=== PATIENT | female | born 1995 | race Caucasian/White ===

== ENCOUNTER 2021-07-20 13:42 | Outpatient (CLI) | payer MEDICAID | END 2021-07-20 23:59 | disposition home or self-care (01) | LOC: LAB 13:42 | PROVIDERS: ATTEND Physician Assistant Medical | DX: N30.00 Acute cystitis without hematuria (principal) | CPT/HCPCS: 87077; 87086; 87181 ==

== ENCOUNTER 2021-07-24 08:00 | Outpatient (CLI) | payer MEDICAID | END 2021-07-24 23:59 | disposition home or self-care (01) | LOC: LAB.N 08:00 | PROVIDERS: ATTEND Family Medicine | DX: J06.9 Acute upper respiratory infection, unspecified (principal); Z20.822 Contact with and (suspected) exposure to COVID-19 ==

== ENCOUNTER 2021-07-28 16:56 | Outpatient (CLI) | payer MEDICAID | END 2021-07-28 16:57 | disposition home or self-care (01) | LOC: COV 16:56 | PROVIDERS: ATTEND Family Medicine | DX: R05 Cough (principal); M79.10 Myalgia, unspecified site; R43.8 Other disturbances of smell and taste; Z20.822 Contact with and (suspected) exposure to COVID-19 ==

== ENCOUNTER 2021-08-22 08:00 | Outpatient (CLI) | payer MEDICAID | END 2021-08-22 23:59 | disposition home or self-care (01) | LOC: LAB.N 08:00 | PROVIDERS: ATTEND Physician Assistant Medical | DX: R30.0 Dysuria (principal) | CPT/HCPCS: 87077; 87086 ==

== ENCOUNTER 2021-11-17 08:00 | Outpatient (CLI) | payer MEDICAID ==
[2021-11-17 22:22] LABS: BACTERIAL VAGINOSIS DNA NEGATIVE (NEGATIVE); CANDIDA GLABRATA DNA NEGATIVE (NEGATIVE); CANDIDA GROUP DNA POSITIVE (NEGATIVE); CANDIDA KRUSEI DNA NEGATIVE (NEGATIVE); TRICHOMONAS VAGINALIS DNA NEGATIVE (NEGATIVE)
[2021-11-17 23:01] LABS: CHLAMYDIA TRACHOMATIS DNA NEGATIVE (NEGATIVE); NEISSERIA GONORRHOEAE DNA NEGATIVE (NEGATIVE); TRICHOMONAS VAGINALIS DNA NEGATIVE (NEGATIVE)
[2021-11-18 15:20] LABS: HIV AG/AB 4TH GEN NON-REACTIVE (NON-REACTIVE)
[2021-11-19 12:07] LABS: HSV 1 IGG TYPE SPECIFIC AB <0.90 index; HSV 2 IGG TYPE SPECIFIC AB <0.90 index
== END 2021-11-17 23:59 ==
LOC: LAB.N 08:00
PROVIDERS: ATTEND Family Medicine
DX: Z20.2 Contact with and (suspected) exposure to infections with a predominantly sexual mode of transmission (principal)
CPT/HCPCS: 81599; 86592; 86695; 86696; 87389; 87491; 87591; 87661; 87801

== ENCOUNTER 2022-02-22 08:10 | Emergency (ER) | payer MEDICAID ==
[2022-02-22 08:27] VITALS: BP 136/81
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
--- NOTE | 2022-02-22 08:46 | XRAY Report ---
PROCEDURE: Elbow 3 View RT INDICATIONS: pain/injury TECHNIQUE: 3 views of the elbow were acquired. COMPARISON: None FINDINGS: Bones: No fractures or dislocations. No suspicious bony lesions. Soft tissues: No elbow joint effusion. No suspicious soft tissue calcifications. IMPRESSION: No acute elbow fracture or dislocation. No significant joint effusion. Reviewed by: Riccardo Mixon MD on 02/22/2022 8:45 AM PDT Approved by: Riccardo Mixon MD on 02/22/2022 8:45 AM PDT Station ID: [id number]
== END 2022-02-22 08:57 | disposition home or self-care (01) ==
LOC: ED 08:10
DX: S53.401A Unspecified sprain of right elbow, initial encounter (principal); W21.89XA Striking against or struck by other sports equipment, initial encounter; Y93.71 Activity, boxing
CPT/HCPCS: 99282; 99283

== ENCOUNTER 2024-01-24 00:16 | Outpatient (CLI) | payer MEDICAID, OTHER | END 2024-01-24 23:59 | disposition critical access hospital (66) | LOC: EMS 00:16 | DX: M54.2 Cervicalgia (principal); V43.52XA Car driver injured in collision with other type car in traffic accident, initial encounter; Y92.413 State road as the place of occurrence of the external cause | CPT/HCPCS: A0425; A0429 ==

== ENCOUNTER 2024-01-24 00:27 | Emergency (ER) | payer MEDICAID, OTHER ==
[2024-01-24 00:46] VITALS: BP 150/105; O2SAT 99
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
== END 2024-01-24 01:05 | disposition home or self-care (01) ==
LOC: EDUNIT# → ED 00:27
DX: S40.211A Abrasion of right shoulder, initial encounter (principal); V49.9XXA Car occupant (driver) (passenger) injured in unspecified traffic accident, initial encounter
CPT/HCPCS: 99283

== ENCOUNTER 2024-04-29 14:47 | Emergency (ER) | payer MEDICAID ==
[2024-04-29 15:15] LABS: BASOPHILS % (AUTO) 0.3 %; EOSINOPHILS % (AUTO) 0.1 %; HCT - HEMATOCRIT 37.7 % (37.0-47.0); HGB - HEMOGLOBIN 12.3 g/dL (12.0-16.0); LYMPHOCYTES # (AUTO) 1.1 10^3/uL (1.5-3.5); MEAN CORPUSCULAR HGB CONC 32.6 g/dL (32.0-36.0); MEAN CORPUSCULAR VOLUME 88.9 fL (81.0-99.0); MEAN PLATELET VOLUME 10.3 fL (7.9-10.8); MONOCYTES # (AUTO) 0.8 10^3/uL (0.0-1.0); MONOCYTES % (AUTO) 8.7 %; NEUTROPHILS # (AUTO) 7.6 10^3/uL (1.5-6.6); NEUTROPHILS % (AUTO) 79.4 %; PLT - PLATELET COUNT 362 10^3/uL (130-450); RED BLOOD COUNT 4.24 10^6/uL (4.20-5.40); RED CELL DISTRIBUTION WIDTH 12.8 % (12.0-15.0); WHITE BLOOD COUNT 9.5 x10^3/uL (4.8-10.8)
[2024-04-29 15:32] LABS: ALBUMIN 3.7 g/dL (3.2-5.5); ALKALINE PHOSPHATASE 87 IU/L (42-121); ALT ALANINE AMINOTRANSFERASE 32 IU/L (10-60); AST ASPARTATE AMINOTRANSFERASE 20 IU/L (10-42); BILIRUBIN,TOTAL 0.7 mg/dL (0.2-1.0); BUN - BLOOD UREA NITROGEN 7 mg/dL (6-20); CALCIUM 9.7 mg/dL (8.5-10.3); CARBON DIOXIDE - CO2 28 mmol/L (21-32); CHLORIDE 97 mmol/L (101-111); CREATININE 0.6 mg/dL (0.6-1.3); GFR - MDRD 118 (>89); GLUCOSE 108 mg/dL (74-104); SODIUM 134 mmol/L (135-145); TOTAL PROTEIN 7.5 g/dL (6.4-8.9)
[2024-04-29 15:42] LABS: LIPASE < 10 U/L (11-82)
--- NOTE | 2024-04-29 16:58 | ED Physician Documentation ---
PD HPI ABD PAIN - Stated complaint Stated Complaint: BLOOD IN VOMIT - Chief complaint Chief Complaint: Abd Pain - History obtained from History obtained from: Patient, Family - History of Present Illness Timing - onset: How many weeks ago (1) Timing - duration: Weeks (1) Timing - details: Gradual onset Pain level max: 8 Pain level now: 8 Quality: Cramping, Aching, Pain Location: All over / everywhere Associated symptoms: Nausea, Vomiting, Diarrhea. No: Constipation, Melena, Hematochezia - Additional information Additional information: Patient is a 28-year-old female who presents to the emergency manage stating that she has had diffuse abdominal pain, nausea and vomiting x 1 week. She states that there was a small amount of blood in the emesis today which made her nervous and decided she should come in for evaluation. Not on blood thinners. Uses marijuana daily. No fevers. No chills. No urinary symptoms. No constipation, no blood in the stool. She did have 1 episode of diarrhea today. Denies any possibility of . No vaginal bleeding or discharge. Review of Systems Constitutional: denies: Fever, Chills Cardiac: denies: Chest pain / pressure Respiratory: denies: Dyspnea, Cough, Wheezing GI: reports: Nausea, Vomiting. denies: Bloody / black stool : denies: Dysuria, Frequency, Hesitancy Skin: denies: Rash Musculoskeletal: denies: Neck pain, Back pain PD PAST MEDICAL HISTORY - Past Medical History Past Medical History: Yes Cardiovascular: None Respiratory: None Neuro: None Endocrine/Autoimmune: None GI: None SCHOOL ATHLETIC DIRECTOR: None HEENT: None Psych: Anxiety Musculoskeletal: None Derm: None - Past Surgical History Past Surgical History: Yes /SCHOOL ATHLETIC DIRECTOR: Tubal ligation - Present Medications Home Medications: Ambulatory Orders Medication Instructions Recorded Confirmed Cefpodoxime Proxetil [Vantin] 100 mg PO Q12H #20 tablet 04/29/24 Mirtazapine 15 mg PO DAILY 04/29/24 04/29/24 Ondansetron Odt [Zofran] 4 mg TL Q6H PRN #10 tablet 04/29/24 Promethazine [Phenergan] 25 mg PO Q6H PRN #10 tab 04/29/24 oxyCODONE [Roxicodone] 5 - 10 mg PO Q6H PRN #20 tablet 04/29/24 MDD 6 - Allergies Allergies/Adverse Reactions: Allergies Allergy/AdvReac Type Severity Reaction Status Date / Time No Known Drug Allergies Allergy Verified 04/29/24 14:54 - Social History Does the pt smoke?: No Smoking Status: Never smoker Does the pt drink ETOH?: No Does the pt have substance abuse?: No - Immunizations Immunizations are current?: Yes - POLST Patient has POLST: No PD ED PE NORMAL - Vitals Vital signs reviewed: Yes - General General: Alert and oriented X 3, No acute distress - HEENT HEENT: Moist mucous membranes - Neck Neck: Supple, no meningeal sign - Cardiac Cardiac: RRR, Strong equal pulses - Respiratory Respiratory: No respiratory distress, Clear bilaterally - Abdomen Abdomen: Soft, Non distended, Other (Mild diffuse tenderness to palpation. No peritoneal signs) - Back Back: No spinal TTP, Other (Right-sided CVA tenderness) - Derm Derm: Warm and dry - Extremities Extremities: No edema - Neuro Neuro: Alert and oriented X 3 Results - Vitals Vitals: Vital Signs - 24 hr 04/29/24 04/29/24 04/29/24 14:54 18:25 21:01 Temperature 36.8 C 37.1 C Heart Rate 83 81 86 Respiratory 16 14 16 Rate Blood Pressure 137/84 H 126/82 H 109/65 O2 Saturation 100 100 99 04/29/24 21:06 Temperature 37.1 C Heart Rate 86 Respiratory 16 Rate Blood Pressure 109/65 O2 Saturation 99 Oxygen O2 Source Room air - Labs Labs: Laboratory Tests 04/29/24 04/29/24 04/29/24 15:00 15:09 15:09 WBC 9.5 RBC 4.24 Hgb 12.3 Hct 37.7 MCV 88.9 MCH 29.0 MCHC 32.6 RDW 12.8 Plt Count 362 MPV 10.3 Neut # (Auto) 7.6 H Lymph # (Auto) 1.1 L Grayson # (Auto) 0.8 Eos # (Auto) 0.0 Baso # (Auto) 0.0 Absolute Nucleated RBC 0.00 Nucleated RBC % 0.0 Sodium 134 L Potassium 4.0 Chloride 97 L Carbon Dioxide 28 Anion Gap 9.0 BUN 7 Creatinine 0.6 Estimated GFR (MDRD) 118 Glucose 108 H Lactic Acid Calcium 9.7 Total Bilirubin 0.7 AST 20 ALT 32 Alkaline Phosphatase 87 Total Protein 7.5 Albumin 3.7 Globulin 3.8 Albumin/Globulin Ratio 1.0 Lipase < 10 L Serum HCG, Qual NEGATIVE Urine Color Urine Clarity Urine pH Ur Specific [place] Urine Protein Urine Glucose (UA) Urine Ketones Urine Occult Blood Urine Nitrite Urine Bilirubin Urine Urobilinogen Ur Leukocyte Esterase Urine RBC Urine WBC Ur Squamous Epith Cells Urine Bacteria Ur Microscopic Review Urine Culture Comments 04/29/24 04/29/24 19:00 19:06 WBC RBC Hgb Hct MCV MCH MCHC RDW Plt Count MPV Neut # (Auto) Lymph # (Auto) Grayson # (Auto) Eos # (Auto) Baso # (Auto) Absolute Nucleated RBC Nucleated RBC % Sodium Potassium Chloride Carbon Dioxide Anion Gap BUN Creatinine Estimated GFR (MDRD) Glucose Lactic Acid 0.9 Calcium Total Bilirubin AST ALT Alkaline Phosphatase Total Protein Albumin Globulin Albumin/Globulin Ratio Lipase Serum HCG, Qual Urine Color YELLOW Urine Clarity CLEAR Urine pH 6.5 Ur Specific [place] 1.010 Urine Protein 100 H Urine Glucose (UA) NEGATIVE Urine Ketones 40 H Urine Occult Blood TRACE-LYSE Urine Nitrite NEGATIVE Urine Bilirubin NEGATIVE Urine Urobilinogen 1 (NORMAL) Ur Leukocyte Esterase NEGATIVE Urine RBC 6-10 H Urine WBC 0-3 Ur Squamous Epith Cells FEW Squamous Urine Bacteria Rare Ur Microscopic Review INDICATED Urine Culture Comments NOT INDICATED - Rads (name of study) CT abdomen pelvis Relevant Findings:: Final report received, See rad report Pelvic ultrasound Relevant Findings:: Final report received, See rad report PD Medical Decision Making - ED course Complexity details: reviewed results, re-evaluated patient, considered differential, d/w patient ED course: 28-year-old female presents to the emergency department with right-sided pyelonephritis. She also has a right-sided ovarian cyst. No evidence of torsion. She was given droperidol, Rocephin, IV fluids, Zofran. Discussed observation in the hospital versus home with close follow-up. She does not want to stay in the hospital. Her lactate is normal. Her white blood cell count is normal. She is feeling better and tolerating p.o. without difficulty. Therefore we will place her on oral antibiotics and nausea medications for home. Recommend she follow-up closely with her doctor for further care. Recommend repeat ultrasound in 4 to 6 weeks to ensure resolution of her cyst. Patient counseled regarding signs and symptoms for which I believe and urgent re- evaluation would be necessary. Patient with good understanding of and agreement to plan and is comfortable going home at this time This document was made in part using voice recognition software. While efforts are made to proofread this document, sound alike and grammatical errors may occur. Departure - Departure Disposition: 01 Home, Self Care Clinical Impression: Pyelonephritis Ovarian cyst Qualifiers: Laterality: right Qualified Code(s): N83.201 - Unspecified ovarian cyst, right side Condition: Good Instructions: ED Kidney Infec Female Follow-Up: your,doctor this week for recheck [Other] Prescriptions: Promethazine [Phenergan] 25 mg PO Q6H PRN #10 tab PRN Reason: Nausea / Vomiting oxyCODONE [Roxicodone] 5 - 10 mg PO Q6H PRN #20 tablet MDD 6 PRN Reason: pain Cefpodoxime Proxetil [Vantin] 100 mg PO Q12H #20 tablet Ondansetron Odt [Zofran] 4 mg TL Q6H PRN #10 tablet PRN Reason: Nausea / Vomiting Comments: You have an infection involving your kidney today. You are given a dose of IV antibiotics, IV fluids and IV nausea medications. We discussed you stay in the hospital but you have decided you do not want to stay in the hospital tonight. Would recommend that you return if you develop fevers, worsening pain or any other new or worrisome symptoms. Forms: PCP List Discharge Date/Time: 04/29/24 21:06
[2024-04-29] MEDS ORDERED: iohexoL-300 100 ML VIAL ONE (17:03)
[2024-04-29] MEDS: DROPERIDOL 5 MG/2 ML VIAL IVP STA (17:09)
[2024-04-29] MEDS: SODIUM CHLORIDE 0.9% 1,000 ML IV STA ×3 (17:12→18:51)
[2024-04-29 17:37] LABS: HCG,QUALITATIVE BLOOD NEGATIVE
[2024-04-29] MEDS: iohexoL-300 100 ML VIAL IVP ONE (18:19)
--- NOTE | 2024-04-29 18:50 | CT Report ---
PROCEDURE: Abdomen/Pelvis W INDICATIONS: diffuse abd pain, vomiting, x 1 week CONTRAST: 100ml omni 300 TECHNIQUE: After the administration of intravenous contrast, a CT scan of the abdomen and pelvis was performed. Images were recorded and evaluated at appropriate window settings. Reformats: coronal and sagittal. F or radiation dose reduction, the following was used: automated exposure control, adjustment of mA and /or kV according to patient size. COMPARISON: None. FINDINGS: Image quality: Diagnostic. Lower chest: Unremarkable. Liver: No solid mass. Gallbladder: No radiopaque stones or wall thickening. Mildly contracted appearance. Biliary tree: No intrahepatic or extrahepatic dilation, accounting for age. Spleen: No splenomegaly. Pancreas: No pancreatic ductal dilation. Adrenals: No adrenal nodule. Kidneys and ureters: There is heterogeneous enhancement of the right kidney with perinephric fat stra nding. Mildly dilated right renal pelvis and right ureter with enhancing hall. No obstructing calcul us is seen. Left kidney enhances normally without hydronephrosis or hydroureter. Stomach, bowel and peritoneum: No gastric or small bowel dilation. No abnormal wall thickening. No pa thologic free fluid. Normal appendix. Nonspecific surgical clip is seen adjacent to the cecum. Lymph nodes: No central or retroperitoneal adenopathy. Vessels: No infrarenal aortic aneurysm. Patent portal vein. PELVIS Reproductive organs: Prominent reflux of contrast material is seen into the canal joints bilaterally, which can be seen in the setting of pelvic congestion syndrome. 4.9 x 3.8 cm right ovarian cyst. Lef t ovary appears normal. Bladder: Minimal bladder wall thickening. Pelvic lymph nodes: No pelvic adenopathy by size criteria. Bones: No aggressive osseous abnormality. Other: No significant ventral or inguinal hernia. IMPRESSION: 1.Heterogeneous enhancement of the right kidney is consistent with pyelonephritis. Mild right hydrour eteronephrosis. Left kidney enhances normally. 2.Prominent reflux of contrast material into the canal veins can be seen in the setting of pelvic con gestion syndrome. 4.9 cm right ovarian cyst. Reviewed by: Michael Hernadez MD on 04/29/2024 6:48 PM PDT Approved by: Michael Hernadez MD on 04/29/2024 6:48 PM PDT Station ID: [id number]
[2024-04-29] MEDS: ONDANSETRON 4 MG/2 ML VIAL IVP STA (18:51)
[2024-04-29 19:14] LABS: BILIRUBIN,URINE NEGATIVE (NEGATIVE); GLUCOSE, URINE (UA) NEGATIVE (NEGATIVE); KETONES,URINE (UA) 40 mg/dL (NEGATIVE); LEUKOCYTE ESTERASE, URINE NEGATIVE (NEGATIVE); NITRITE,URINE NEGATIVE (NEGATIVE); OCCULT BLOOD,URINE TRACE-LYSE (NEGATIVE); PH,URINE 6.5 PH (5.0-7.5); PROTEIN,URINE 100 mg/dL (NEGATIVE); UROBILINOGEN,URINE 1 (NORMAL) E.U./dL (NORMAL)
[2024-04-29 19:29] LABS: CLARITY,URINE CLEAR (CLEAR)
[2024-04-29] MEDS: cefTRIAXone 1 GM VIAL IVP STA (19:40)
[2024-04-29 19:45] LABS: BACTERIA,URINE Rare /HPF (None Seen); SQUAMOUS EPITHELIAL CELL,UR FEW Squamous (<= Few); WBC,URINE 0-3 /HPF (0-5)
--- NOTE | 2024-04-29 20:10 | Ultrasound Report ---
PROCEDURE: Pelvic w/Transvag+Doppler Comp INDICATIONS: R ovarian cyst, vomiting TECHNIQUE: Real-time scanning was performed of the pelvic organs, with image documentation. Additional endovagi nal scanning was necessary due to incomplete visualization of the adnexal and endometrial structures by transabdominal scanning. Doppler interrogation was performed of the ovaries bilaterally. COMPARISON: CT abdomen/pelvis 04/29/2024. FINDINGS: Uterus: Uterus is anteverted and normal in size at 8.1 x 3.9 x 5.0 cm. The myometrium is heterogene ous. The endometrium measures 7 mm in combined thickness. Prominent color flow is seen in the uterus and bilateral adnexa. Ovaries: The right ovary measures 4.7 x 4.0 x 5.5 cm, with a calculated ovarian volume of 54 cc. A simple cyst in the right ovary measures 4.4 x 4.7 x 3.2 cm. The left ovary measures 1.8 x 1.3 x 1.9 c m, with a calculated ovarian volume of 2 cc. Appropriate blood flow to the ovaries with Doppler inte rrogation. Less than 12 follicles can be seen in each ovary. No adnexal masses are seen. Normal D oppler flow is seen to each ovary. Other: No pathologic free abdominal or pelvic fluid. IMPRESSION: 1.Right ovarian 4.7 cm simple cyst. No sonographic signs of ovarian torsion. 2.Prominent adnexal vascularity can be seen in the setting of pelvic congestion syndrome. Reviewed by: Michael Hernadez MD on 04/29/2024 8:09 PM PDT Approved by: Michael Hernadez MD on 04/29/2024 8:09 PM PDT Station ID: [id number]
[2024-04-29 21:05] VITALS: BP 109/65; O2SAT 99
== END 2024-04-29 21:06 | disposition home or self-care (01) ==
LOC: ED 14:47
DX: N12 Tubulo-interstitial nephritis, not specified as acute or chronic (principal); N83.201 Unspecified ovarian cyst, right side
CPT/HCPCS: 36415; 74177; 76830; 76856; 80053; 81001; 83605; 83690; 84703; 85025; 87040; 93975; 96374; 96375; 99284; Q9967; 81003; 87086